=== PATIENT | female | born 1985 | race Caucasian/White ===

== ENCOUNTER 2016-08-06 08:36 | Emergency (ER) | payer BC ==
[2016-08-06 10:55] LABS: HEMOGLOBIN 13.3 gm/dl (12.3-15.3); RED BLOOD COUNT 4.3 M/UL (4.00-5.10); WHITE BLOOD COUNT 4.8 K/UL (4.5-11.0)
[2016-08-06 11:10] LABS: BUN/CREATININE RATIO 32 (0-10)
== END 2016-08-06 13:34 | disposition home or self-care (01) ==
LOC: ER1 08:36
PROVIDERS: Physician Assistant
DX: K59.00 Constipation, unspecified (principal); Z88.0 Allergy status to penicillin; Z88.1 Allergy status to other antibiotic agents
CPT/HCPCS: 36415; 80053; 81001; 82150; 83690; 84703; 85025; 93005; 96374; 99284; J2405

== ENCOUNTER → 2020-03-27 | Outpatient (CLI) | payer OTHER ==
[~2020-03-27] MED LIST: LODINE CAP 300300 MG PO; OMNICEF 300 MG300 MG PO; PREDNISONE50 MG PO
== END ==
LOC: KOH-I 09:07
DX: M25.562 Pain in left knee (principal)
CPT/HCPCS: 73562